=== PATIENT | male | born 1965 | race Caucasian/White ===

== ENCOUNTER → 2023-12-11 | Day surgery (SDC) | payer OTHER ==
[~2023-12-11] MED LIST: BUPIVACAINE HCL 0.5% INJ 30 ML VIAL INJ ONE; DEXAMETHASONE SOD PHOS INJ 4 MG/ML SDV ONE; FENTANYL CITRATE/PF 100MCG/2 ML INJ ONE; KETOROLAC TROMETHAMINE 30 MG/ML VIAL ONE; LIDOCAINE HCL 2% LOCAL INJ 5 ML SDV VIAL INJ ONE; LISINOPRIL10 MG PO; NEOSTIGMINE 1 MG/ML 10ML VIAL ONE; ONDANSETRON HCL INJ 2MG/ML 2ML 2 MG/ML VIAL ONE; PROPOFOL IV EMULSION 10 MG/ML 20 ML VIAL ONE; SEVOFLURANE INHAL SOLN 250 ML PEN BTL ONE
[2023-12-11] MEDS: LACTATED RINGER'S 1,000 ML ONE (12:18)
[2023-12-11] MEDS: CEFAZOLIN SODIUM 2 GM ONE (12:18)
[2023-12-11 14:43] VITALS: BP 146/89; PULSE 76; RESP 17; O2SAT 96
== END | disposition home or self-care (01) ==
LOC: OR 12:15
PROVIDERS: ATTEND Podiatrist Foot & Ankle Surgery
DX: D48.19 Other specified neoplasm of uncertain behavior of connective and other soft tissue (principal); I10 Essential (primary) hypertension; E78.5 Hyperlipidemia, unspecified; Z01.810 Encounter for preprocedural cardiovascular examination; Z79.899 Other long term (current) drug therapy
CPT/HCPCS: 28039; 88305; 93005; J1100; J1885; J2001; J2405; J2704; J3010; J7121; 88304; J2710